=== PATIENT | female | born 1960 | race American Indian/Alaskan Native ===

== ENCOUNTER 2017-08-16 22:20 | Emergency (ER) | payer OTHER ==
[2017-08-17 01:16] LABS: Basophils % (Auto) 1.1 % (0.0-1.8); Hematocrit 43.5 % (30.3-42.9); Hemoglobin 14.4 gm/dl (10.1-14.3); Mean Corpuscular HGB Conc 33 % (30-34); Mean Corpuscular Hemoglobin 29 pg (28-32); Mean Corpuscular Volume 86 fl (79-97); Platelet Count 156 K/mm3 (140-440); Red Blood Count 5.04 M/mm3 (3.65-5.03); Red Cell Distribution Width 15.3 % (13.2-15.2); White Blood Count 7.9 K/mm3 (4.5-11.0)
[2017-08-17 01:20] LABS: Anion Gap 17 mmol/L; BUN/Creatinine Ratio 18.75; Blood Urea Nitrogen 15 mg/dL (7-17); Calcium 9.4 mg/dL (8.4-10.2); Carbon Dioxide 27 mmol/L (22-30); Chloride 104.6 mmol/L (98-107); Glucose 99 mg/dL (65-100); Potassium 4.6 mmol/L (3.6-5.0); Sodium 144 mmol/L (137-145)
--- NOTE | 2017-08-17 02:35 | Cat Scan Report ---
FINAL REPORT PROCEDURE: CT HEAD/BRAIN WO CON TECHNIQUE: Computerized tomography of the head was performed without contrast material. HISTORY: dizziness COMPARISON: No prior studies are available for comparison. FINDINGS: Skull and scalp: Normal. Paranasal sinuses: Normal. Ventricles and subarachnoid spaces: Normal. Cerebrum: No evidence of hemorrhage, acute infarction or mass . Cerebellum and brainstem: There is no evidence of acute hemorrhage or hematoma. No infarction.. Vasculature: Normal. Comments: None. IMPRESSION: There is no evidence of an acute intracranial process
--- NOTE | 2017-08-17 11:47 | Emergency Department Report ---
HPI - General Chief Complaint: Dizziness Time Seen by Provider: 08/17/17 10:58 - HPI HPI: This is a 57-year-old [place] female presents to emergency department via EMS from home with complaint of some generalized dizziness and/or lightheadedness. When EMS got there she has not had very elevated blood pressure with a systolic of about 200. The patient says that she was just diagnosed with hypertension about 2 weeks ago and recently started on 20 mg of lisinopril by her primary care physician, Dr. Amezquita. She denies any chest pain, shortness of breath, headache, vision change, slurred speech or any neurological deficits. No recent travel or sick contacts at home. She did not take anything for her symptoms prior to presentation. She denies any illicit drug use. ED Past Medical Hx - Past Medical History Hx Hypertension: Yes - Surgical History Past Surgical History?: No - Social History Smoking Status: Current Every Day Smoker Substance Use Type: None ED Review of Systems ROS: Stated complaint: HTN; DIZZINESS Other details as noted in HPI Comment: All other systems reviewed and negative Constitutional: denies: chills, fever Eyes: denies: eye pain, eye discharge, vision change ENT: denies: ear pain, throat pain Respiratory: denies: cough, shortness of breath, wheezing Cardiovascular: denies: chest pain, palpitations Gastrointestinal: denies: abdominal pain, nausea, diarrhea Genitourinary: denies: urgency, dysuria, discharge Musculoskeletal: denies: back pain, joint swelling, arthralgia Skin: denies: rash, lesions Neurological: other (dizziness, lightheaded). denies: headache, weakness, paresthesias Physical Exam - Physical Exam Vital Signs: Vital Signs 08/16/17 08/17/17 23:26 03:59 Temperature 99.1 F 98.9 F Pulse Rate 78 64 Respiratory 14 Rate Blood Pressure 155/78 155/61 O2 Sat by Pulse 98 98 Oximetry Physical Exam: GENERAL: The patient is well-developed well-nourished. HENT: Normocephalic. Atraumatic. Patient has moist mucous membranes. EYES: Extraocular motions are intact. Pupils equal reactive to light bilaterally. NECK: Supple. Trachea is midline. CHEST/LUNGS: Clear to auscultation. There is no respiratory distress noted. HEART/CARDIOVASCULAR: Regular. There is no tachycardia. There is no gallop rub or murmur. ABDOMEN: Abdomen is soft, nontender. Patient has normal bowel sounds. There is no abdominal distention. SKIN: Skin is warm and dry. NEURO: The patient is awake, alert, and oriented. The patient is cooperative. The patient has no focal neurologic deficits. The patient has normal speech and gait. Cranial nerves II through XII grossly intact. No dysmetria. No pronator drift. MUSCULOSKELETAL: There is no tenderness or deformity. There is no limitation range of motion. There is no evidence of acute injury. Muscle strength 5 out of 5 in upper and lower extremities bilaterally. ED Course Vital Signs 08/16/17 08/17/17 23:26 03:59 Temperature 99.1 F 98.9 F Pulse Rate 78 64 Respiratory 14 Rate Blood Pressure 155/78 155/61 O2 Sat by Pulse 98 98 Oximetry ED Medical Decision Making - Lab Data Result diagrams: 08/17/17 00:34 08/17/17 00:34 - EKG Data -: EKG Interpreted by [facility] EKG shows normal: sinus rhythm (sinus arrhythmia), axis, intervals, QRS complexes, ST-T waves Rate: bradycardia (55 bpm) - EKG Data When compared to previous EKG there are: previous EKG unavailable Interpretation: normal EKG (with sinus arrhythmia and mild bradycardia at 55 bpm ) - Radiology Data Radiology results: report reviewed CT of the head does not show any acute intracranial process including no ischemia, shift, mass, bleeding or skull fracture. - Medical Decision Making 57-year-old female presents with some generalized dizziness and lightheadedness. She has no focal, motor or sensory deficits in her cranial nerves are intact. EKG does not show any signs of ST elevation GA or dysrhythmia. Labs are mostly unremarkable. CT of the head does not show any bleed, shift, mass or any ischemic process. Vital signs stable throughout her ED course. The patient was reevaluated multiple times for multiple hours and has remained stable. She says she is feeling improved. She was seen ambulatory in the emergency department and appears stable on doing so. For these reasons patient appears safe for discharge home at this time. She's been encouraged to follow up with her primary care physician and return to ER if any worsening or symptoms or any acute distress. - Differential Diagnosis orthostatic hypotension, vasovagal, hypothyroidism, TIA Critical Care Time: No Critical care attestation.: If time is entered above; I have spent that time in minutes in the direct care of this critically ill patient, excluding procedure time. ED Disposition Clinical Impression: Dizziness, Lightheaded Disposition: DC-01 TO HOME OR SELFCARE Is pt being admited?: No Condition: Stable Instructions: Lightheadedness (ED), Dizziness (ED) Additional Instructions: Please follow-up with your primary care physician the next few days. Return to the emergency Department with any worsening of her symptoms or any acute distress. Keep a blood pressure log. Referrals: STEFANY REYNOSO MD [Primary Care Provider] - 3-5 Days Time of Disposition: 12:37
[2017-08-17 13:09] VITALS: BP 75/41
== END 2017-08-17 13:09 | disposition home or self-care (01) ==
LOC: ED 22:20
DX: R42 Dizziness and giddiness (principal); I10 Essential (primary) hypertension; F17.200 Nicotine dependence, unspecified, uncomplicated
CPT/HCPCS: 36415; 70450; 80048; 84443; 85025; 93005; 93010

== ENCOUNTER 2020-03-12 23:29 | Emergency (ER) | payer OTHER ==
[2020-03-13 03:36] LABS: Hemoglobin 14.9 gm/dl (10.1-14.3); Red Blood Count 5.39 M/mm3 (3.65-5.03)
[2020-03-13 03:38] LABS: Mean Corpuscular Volume 84 fl (79-97)
[2020-03-13 03:53] LABS: Basophils % (Auto) 1.4 % (0.0-1.8); Eosinophils % (Auto) 2.5 % (0.0-4.3); Lymphocytes % (Auto) 30.5 % (13.4-35.0); Mean Corpuscular HGB Conc 33 % (30-34); Mean Platelet Volume 11.4 fl (6-12); Monocytes % (Auto) 11.5 % (0.0-7.3); Platelet Count 141 K/mm3 (140-440); Red Cell Distribution Width 14.9 % (13.2-15.2)
[2020-03-13 03:54] LABS: Basophils # (Auto) 0.1 K/mm3 (0.0-0.1); Eosinophils # (Auto) 0.2 K/mm3 (0.0-0.4); Lymphocytes # (Auto) 1.9 K/mm3 (1.2-5.4); Monocytes # (Auto) 0.7 K/mm3 (0.0-0.8)
[2020-03-13 04:08] LABS: BUN/Creatinine Ratio 20; Blood Urea Nitrogen 20 mg/dL (7-17); Calcium 9.3 mg/dL (8.4-10.2); Hemolysis Index 7
[2020-03-13] MEDS ORDERED: POTASSIUM CHLORIDE ER 20 MEQ TAB PO ONE (04:32)
--- NOTE | 2020-03-13 04:36 | Emergency Department Report ---
ED Dizziness HPI - General Chief Complaint: Dizziness Stated Complaint: DIZZY, FINGERS TINGLING LEFT HAND Time Seen by Provider: 03/13/20 01:04 Source: patient Mode of arrival: Ambulatory Limitations: No Limitations - History of Present Illness Initial Comments: 60-year-old female with history of hypertension presents to ED with dizziness x1 week. Patient states she has been feeling dizzy and lightheaded intermittently x1 week. Patient states she saw her PCP last week and he started her on 2 blood pressure medications. Patient states tonight, she had another episode of dizziness with associated numbness and tingling to her left hand and decided to come to the ED. Patient denies headache slurred speech, facial droop, extremity weakness, fever, cough, shortness of breath. Patient denies any sick contacts or any contact with known persons with coronavirus. Patient states her dizziness and paresthesias have currently resolved and she is feeling much better at this time. MD Complaint: dizziness -: week(s) (1) Timing: awoke with symptoms Severity: moderate Improves With: nothing Worsens With: nothing Associated Symptoms: denies: chest pain, cough, fever/chills, shortness of breath - Related Data Allergies Allergy/AdvReac Type Severity Reaction Status Date / Time Penicillins Allergy Hives Verified 08/16/17 23:26 sulfamethoxazole Allergy Hives Verified 08/16/17 23:26 [From Bactrim] trimethoprim [From Bactrim] Allergy Hives Verified 08/16/17 23:26 ED Review of Systems ROS: Stated complaint: DIZZY, FINGERS TINGLING LEFT HAND Other details as noted in HPI Comment: All other systems reviewed and negative Constitutional: denies: chills, fever Respiratory: denies: cough, shortness of breath Cardiovascular: denies: chest pain Gastrointestinal: denies: nausea, vomiting Neurological: paresthesias. denies: headache, weakness ED Past Medical Hx - Past Medical History Previous Medical History?: Yes Hx Hypertension: Yes - Surgical History Past Surgical History?: No - Social History Smoking Status: Current Every Day Smoker Substance Use Type: None ED Physical Exam - General Limitations: No Limitations General appearance: alert, in no apparent distress - Head Head exam: Present: atraumatic, normocephalic - Eye Eye exam: Present: normal appearance, EOMI - ENT ENT exam: Present: mucous membranes moist - Neck Neck exam: Present: normal inspection - Respiratory Respiratory exam: Present: normal lung sounds bilaterally. Absent: respiratory distress - Cardiovascular Cardiovascular Exam: Present: regular rate, normal rhythm - GI/Abdominal GI/Abdominal exam: Present: soft. Absent: distended, tenderness - Extremities Exam Extremities exam: Present: normal inspection - Neurological Exam Neurological exam: Present: alert, oriented X3 - Psychiatric Psychiatric exam: Present: normal affect, normal mood - Skin Skin exam: Present: warm, dry, intact, normal color ED Course Vital Signs 03/12/20 03/13/20 03/13/20 23:34 01:10 01:15 Temperature 98.8 F Pulse Rate 103 H 88 Respiratory 18 19 Rate Blood Pressure 139/70 138/76 O2 Sat by Pulse 99 100 98 Oximetry 03/13/20 03/13/20 03/13/20 01:30 01:45 02:00 Temperature Pulse Rate 81 85 76 Respiratory 16 13 16 Rate Blood Pressure 130/70 130/70 154/79 O2 Sat by Pulse 97 97 98 Oximetry 03/13/20 03/13/20 03/13/20 02:15 02:30 02:45 Temperature Pulse Rate 93 H 76 71 Respiratory 14 18 15 Rate Blood Pressure 154/79 122/73 O2 Sat by Pulse 100 97 98 Oximetry ED Medical Decision Making - Lab Data Result diagrams: 03/13/20 03:03 03/13/20 03:03 - EKG Data -: EKG Interpreted by Me EKG shows normal: sinus rhythm, axis, intervals, QRS complexes, ST-T waves Rate: normal - EKG Data Interpretation: no acute changes Critical care attestation.: If time is entered above; I have spent that time in minutes in the direct care of this critically ill patient, excluding procedure time. ED Disposition Clinical Impression: Dizziness, Hypokalemia Disposition: DC-01 TO HOME OR SELFCARE Is pt being admited?: No Condition: Stable Instructions: Hypokalemia (ED), Dizziness (ED) Referrals: PRIMARY CARE, [Primary Care Provider] - 3-5 Days [facility] [Provider Group] - 3-5 Days Time of Disposition: 04:37
[2020-03-13 04:51] VITALS: BP 112/67
== END 2020-03-13 04:51 | disposition home or self-care (01) ==
LOC: ED 23:29
DX: E87.6 Hypokalemia (principal); I10 Essential (primary) hypertension; F17.200 Nicotine dependence, unspecified, uncomplicated; Z88.2 Allergy status to sulfonamides; Z88.0 Allergy status to penicillin
CPT/HCPCS: 36415; 80048; 84484; 85025; 93005; 93010

== ENCOUNTER 2021-06-11 11:40 | Outpatient (CLI) | payer OTHER ==
--- NOTE | 2021-06-11 13:12 | XRay Report ---
CHEST 2 VIEWS INDICATION: HYPERTENSION. COMPARISON: None. FINDINGS: Support devices: None. Heart: Within normal limits. Lungs/Pleura: No acute air space or interstitial disease. No significant pleural effusion. IMPRESSION: No acute findings. Signer Name: Carl Estevez MD Signed: 06/11/2021 1:07 PM Workstation Name: [id number]
--- NOTE | 2021-06-12 10:52 | Electrocardiograph Report ---
[facility] Test Date: 2021-06-11 Test Time: 12:25:26 Pat Name: DAQUAN GRAMAJO Department: Room: Gender: F Reclaimer: CINDY : 1960 Requested By: JOSHUA GARCIA Order Number: [id number] Reading MD: Fredy Zuluaga Measurements Intervals [place] Rate: 78 P: 2 VT: 134 QRS: 33 QRSD: 81 T: 61 QT: 386 QTc: 439 Interpretive Statements Sinus rhythm Probable left atrial enlargement No previous ECG available for comparison Electronically Signed On 06-12-2021 10:51:37 EDT by Fredy Zuluaga
== END 2021-06-11 11:41 | disposition home or self-care (01) ==
LOC: CARD 11:40
PROVIDERS: ATTEND Internal Medicine
DX: I10 Essential (primary) hypertension (principal); Z72.0 Tobacco use
CPT/HCPCS: 71046; 93005